=== PATIENT | female | born 1980 | race African-American/Black ===

== ENCOUNTER 2022-07-19 07:54 | Emergency (ER) | payer BC ==
[2022-07-19 08:37] VITALS: RESP 18; BMI 29.0
[2022-07-19] MEDS ORDERED: ACETAMINOPHEN 500 MG TABLET (FP) PO ONE (09:04)
[2022-07-19 11:14] VITALS: BP 118/75; PULSE 69; TEMP 97.9
== END 2022-07-19 11:16 | disposition home or self-care (01) ==
LOC: JER 07:54
DX: M79.651 Pain in right thigh (principal); X58.XXXA Exposure to other specified factors, initial encounter
CPT/HCPCS: 73552-TC-RT-FY; 82962; 99283-25